=== PATIENT | male | born 1975 | race Caucasian/White ===

== ENCOUNTER → 2025-07-12 | Outpatient (CLI) | payer OTHER ==
[2025-07-12 18:58] LABS: Hematocrit 41.8 % (37.0-53.0); Hemoglobin 14.5 g/dL (13.5-17.5); Mean Corpuscular HGB Conc 34.7 g/dL (31.5-36.5); Mean Corpuscular Volume 95 fL (80-100); NRBC ABSOLUTE 0.00 K/mm3 (0.00-0.02); NRBC Auto 0.0 /100 WBC (0.0-0.2); Platelet Count 302 K/mm3 (150-400); RDW Coefficient Variation 11.9 % (11.7-14.2); RDW Standard Deviation 41.7 fL (35.1-46.3)
[2025-07-12 21:12] LABS: Anion Gap 9 mmol/L (3-11); Blood Urea Nitrogen 8 mg/dL (8-24); CHOL/HDL RATIO 4.2; CO2, Blood 24 mmol/L (21-32); Calcium, Blood 9.0 mg/dL (8.5-10.1); Chloride, Blood 103 mmol/L (98-108); Cholesterol 150 mg/dL (50-200); Creatinine, Blood 0.91 mg/dL (0.60-1.20); Glucose, Blood 97 mg/dL (70-99); HDL Cholesterol 36 mg/dL (>39); LDL/HDL RATIO 1.9; Low Density Lipoprotein Chol 70 mg/dL (0-110); Potassium, Blood 3.7 mmol/L (3.5-5.5); Sodium, Blood 132 mmol/L (136-145); Thyroid Stimulating Hormone 4.790 uIU/mL (0.360-4.800); Triglycerides 221 mg/dL (30-160); Very Low Density Lipoprot Chol 44 mg/dL (6-32)
== END ==
LOC: LAB 18:25 → LAB SHORT 18:25
PROVIDERS: Student in an Organized Health Care Education/Training Program
DX: R22.1 Localized swelling, mass and lump, neck (principal); R03.0 Elevated blood-pressure reading, without diagnosis of hypertension
CPT/HCPCS: 80048; 80061; 84443; 85027

== ENCOUNTER → 2025-07-27 | Outpatient (CLI) | payer OTHER ==
[2025-07-27 20:20] LABS: C-REACTIVE PROTEIN, EXT RANGE 1.06 mg/dL (0.000-0.300)
[2025-07-31 05:08] LABS: ANTI-NUCLEAR AB ANA,IGG ELISA None Detected (None Detected)
== END ==
LOC: LAB SHORT 18:48 → LAB 18:48
PROVIDERS: Student in an Organized Health Care Education/Training Program
DX: M79.2 Neuralgia and neuritis, unspecified (principal)
CPT/HCPCS: 82607; 82746; 85651; 86037; 86038; 86140

== ENCOUNTER 2025-08-05 06:58 | Emergency (ER) | payer OTHER ==
[~2025-08-05] VITALS: Ht 175.3 cm; Wt 74.8 kg
[2025-08-05] MEDS ORDERED: LORazepam 2 MG/ML 1ML Injection IV ONE ×2 (07:25→18:48)
[2025-08-05] MEDS ORDERED: Ketamine HCl 100 MG / ML 5ML Vial IV ONE ×2 (07:25→18:48)
[2025-08-05] MEDS ORDERED: NS 1,000 ML IV ONE (07:28)
[2025-08-05 07:30] LABS: BASOPHILS ABSOLUTE AUTO 0.04 K/mm3 (0.00-0.23); BASOPHILS PERCENT AUTO 0 % (0-2); EOSINOPHILS ABSOLUTE AUTO 0.05 K/mm3 (0.00-0.68); EOSINOPHILS PERCENT AUTO 0 % (0-6); Hematocrit 46.9 % (37.0-53.0); Hemoglobin 16.7 g/dL (13.5-17.5); IMMATURE GRAN ABSOLUTE AUTO 0.05 K/mm3 (0.00-0.10); IMMATURE GRAN PERCENT AUTO 0 % (0-1); LYMPHOCYTES ABSOLUTE AUTO 1.75 K/mm3 (0.84-5.20); LYMPHOCYTES PERCENT AUTO 12 % (21-46); MONOCYTES ABSOLUTE AUTO 0.91 K/mm3 (0.16-1.47); MONOCYTES PERCENT AUTO 6 % (4-13); Mean Corpuscular HGB Conc 35.6 g/dL (31.5-36.5); Mean Corpuscular Volume 94 fL (80-100); NEUTROPHILS ABSOLUTE AUTO 12.12 K/mm3 (1.96-9.15); NEUTROPHILS PERCENT AUTO 81 % (41-73); NRBC ABSOLUTE 0.00 K/mm3 (0.00-0.02); NRBC Auto 0.0 /100 WBC (0.0-0.2); RDW Coefficient Variation 12.1 % (11.7-14.2); RDW Standard Deviation 41.3 fL (35.1-46.3)
[2025-08-05 07:43] LABS: Alanine Aminotransfer (ALT/SGP 23.0 U/L (12-78); Albumin, Blood 4.6 g/dL (3.4-5.0); Albumin/Globulin Ratio 1.0 (0.8-1.8); Anion Gap 12.0 mmol/L (3-11); Aspartate Aminotrans (AST/SGOT 32.0 U/L (12-37); Bilirubin, Total 0.6 mg/dL (0.1-1.0); Blood Urea Nitrogen 18.0 mg/dL (8-24); CO2, Blood 22.0 mmol/L (21-32); Calcium, Blood 9.3 mg/dL (8.5-10.1); Chloride, Blood 99.0 mmol/L (98-108); Creatinine, Blood 0.77 mg/dL (0.60-1.20); Globulin, Blood 4.8 g/dL (2.2-4.0); Glucose, Blood 89.0 mg/dL (70-99); Potassium, Blood 4.3 mmol/L (3.5-5.5); Sodium, Blood 129.0 mmol/L (136-145); Total Protein, Blood 9.4 g/dL (6.4-8.2)
[2025-08-05] MEDS ORDERED: FentaNYL Citrate 50 MCG/ML 2 ML Injection ONE (07:55)
[2025-08-05 08:01] LABS: Platelet Count 310 K/mm3 (150-400)
[2025-08-05] MEDS ORDERED: Midazolam HCL 50 MG in NS 40 ML IV SCH (08:10)
[2025-08-05] MEDS ORDERED: CefTRIAXone Sodium 2,000 MG in NS 100 ML IV ONE (09:10)
[2025-08-05 10:57] LABS: Influenza A, PCR NEGATIVE (NEGATIVE); Influenza B, PCR NEGATIVE (NEGATIVE); Resp Syncytial Virus, PCR NEGATIVE (NEGATIVE); SARS-Cov-2 (COVID-19) PCR, MMC NEGATIVE (NEGATIVE)
[2025-08-05] MEDS ORDERED: Propofol 10mg/ml 20 ml Vial (Procedural) IV ONE (18:48)
[2025-08-05] MEDS ORDERED: SuccINYLCHOLINE Chloride 100 MG/5 ML 5MLSYR IV ONE (18:48)
== END 2025-08-05 11:40 | disposition short-term general hospital (02) ==
LOC: ER 06:58
PROVIDERS: Emergency Medicine
DX: C32.9 Malignant neoplasm of larynx, unspecified (principal)
CPT/HCPCS: 31500; 51702; 71045; 80053; 85025; 87637; 93005; 93010; 94002; J0330; J0696; J2060; J2250; J2704; J2919; J3010; J7030